=== PATIENT | female | born 1970 | race Caucasian/White ===

== ENCOUNTER → 2019-05-23 | Outpatient (REF) | payer MEDICAID ==
[~2019-05-23] MED LIST: ACYC800T OR; ALLE25CA PO; BETA SERON SC; BUSP15TA OR; CLIN150C OR; COLA100C2 OR; FERROUS GLUCONATE OR; FIORICET PO; HYDR50TA8 PO; IBUP600T OR; IMIT100T PO; LEVO125T OR; LISI20TA5 OR; LORA1TAB OR; MECL25TA2 OR; NEUR100C PO; VENL75TA2 OR; VENLAFAXINE PO; VICO5TAB OR; [UNRECOGNIZED DRUG - OTHER] PO; excedrine PO; lorazepam PO; omeprazole PO; topiramate PO; tums PO
[2019-05-24 13:36] LABS: APPEARANCE, URINE CLEAR (CLEAR); BACTERIA, URINE AUTO NEGATIVE (NEGATIVE); BILIRUBIN, URINE AUTO NEGATIVE (NEGATIVE); BLOOD, URINE BLOOD NEGATIVE (NEGATIVE); CALCIUM OXALATE CRYSTALS LARGE; COLOR, URINE YELLOW (YELLOW); GLUCOSE, URINE (UA) AUTO NEGATIVE (NEGATIVE); KETONE, URINE AUTO TRACE mg/dL (NEGATIVE); LEUKOCYTE ESTERASE, URINE AUTO TRACE (NEGATIVE); MUCUS, URINE SMALL (NEGATIVE); NITRITE, URINE AUTO NEGATIVE (NEGATIVE); PROTEIN, URINE AUTO 1+ mg/dL (NEGATIVE); RBC, URINE AUTO 0 /HPF (0-3); SPECIFIC GRAVITY URINE AUTO 1.028 (1.002-1.035); SQUAMOUS EPITHELIAL CELL UR AU 1 /HPF (0-6); WBC, URINE AUTO 6 /HPF (0-3)
== END ==
LOC: M SMT 12:57
PROVIDERS: ATTEND Nurse Practitioner Family
DX: R31.0 Gross hematuria (principal)

== ENCOUNTER → 2019-10-10 | Outpatient (CLI) | payer MEDICAID ==
--- NOTE | 2019-10-10 14:32 | PFTRPT ---
Site: [facility], [address] [place] [address], [id number] ID: [id number] Name: MAHOGANY MIRAMONTES Visit Date: 10/10/2019 Second ID: [id number] Referring Doctor: Carlos Jacobs MD Reviewing Doctor: Carlos Jacobs MD Floral Clerk: Calixto MONTEJO, MEKA Age: 49 : 1970 Sex: Female Race: Height: 63.00 Inches Weight: 348.00 Lbs BSA: 2.45 Order IDs: [id number] Requested Test(s): <RESP-PFT.PFT B/A> Diagnosis: R91.8 test meet the ATS standards for acceptability and repeatability. Pt was given four puffs of albuterol for postbronchodilator. Review Status: Not Reviewed Pre-Bronch Post-Bronch Pred Actual %Pred Actual %Chng SPIROMETRY FVC (L) 3.41 2.74 80 2.82 3 FEV1 (L) 2.70 2.20 81 2.31 4 FEV1/FVC (%) 80 80 100 82 1 FEF 25% (L/sec) 5.10 5.20 101 5.36 3 FEF 50% (L/sec) 3.90 2.59 66 3.25 25 FEF 75% (L/sec) 1.43 0.86 60 1.10 27 FEF 25-75% (L/sec) 2.68 2.11 78 2.52 19 FEF Max (L/sec) 6.56 6.35 96 5.94 -6 FIVC (L) 2.67 2.88 7 FIF 50% (L/sec) 4.39 3.87 88 3.56 -8 FIF Max (L/sec) 4.28 4.54 5 MVV (L/min) 95 70 73 Expiratory Time (sec) 6.63 7.14 7 Back Extrap Vol (L) 0.10 0.09 -12 Time To FEFmax (sec) 0.103 0.088 -14 LUNG VOLUMES SVC (L) 3.15 3.18 101 IC (L) 2.16 2.64 122 ERV (L) 0.99 0.55 55 TGV (L) 2.74 2.03 74 RV (Pleth) (L) 1.75 1.49 84 TLC (Pleth) (L) 4.90 4.67 95 RV/TLC (Pleth) (%) 35 32 90 DIFFUSION DLCOunc (ml/min/mmHg) 22.27 17.28 77 DLCOcor (ml/min/mmHg) 22.27 18.11 81 DL/VA (ml/min/mmHg/L) 4.54 4.51 99 VA (L) 4.90 4.02 82 BHT (sec) 10.49 IVC (L) 2.70 TLC (SB) (L) 4.17 AIRWAYS RESISTANCE Raw (cmH2O/L/s) 1.86 1.46 78 Gaw (L/s/cmH2O) 1.03 0.69 66 sRaw (cmH2O*s) 4.76 3.15 66 sGaw (1/cmH2O*s) 0.20 0.32 158 BLOOD GASES Hgb (gm/dL) 12.0
== END ==
LOC: M CARPUL 13:37
PROVIDERS: ATTEND Internal Medicine Pulmonary Disease
DX: R91.8 Other nonspecific abnormal finding of lung field (principal)

== ENCOUNTER → 2022-04-21 | Outpatient (REF) | LOC: M PLAIMG 15:43 | PROVIDERS: ATTEND Internal Medicine | DX: Z00.00 Encounter for general adult medical examination without abnormal findings (principal) ==